=== PATIENT | female | born 1990 | race Caucasian/White ===

== ENCOUNTER 2021-07-18 14:55 | Emergency (ER) | payer OTHER ==
[~2021-07-18 14:55] MED LIST: FLAGYL500 MG PO; IBUPROFEN800 MG PO; PENVEE K 500 M500 MG PO
== END 2021-07-18 15:56 | disposition left against medical advice (07) ==
LOC: ER1 14:55
DX: J06.9 Acute upper respiratory infection, unspecified (principal); F17.200 Nicotine dependence, unspecified, uncomplicated; Z20.822 Contact with and (suspected) exposure to COVID-19
CPT/HCPCS: 0240U; 99283

== ENCOUNTER → 2021-07-23 | Outpatient (CLI) | payer OTHER | LOC: LAB 03:53 | DX: Z02.83 Encounter for blood-alcohol and blood-drug test (principal) | CPT/HCPCS: 36415 ==